=== PATIENT | female | born 1955 | race African-American/Black ===

== ENCOUNTER 2017-07-09 19:16 | Inpatient (IN) | payer MEDICAID ==
[~2017-07-09] VITALS: Ht 162.6 cm; Wt 77.6 kg
[~2017-07-09 19:16] MED LIST: ALBU6.7H INH; DIAZ10TA PO; HYDR-523 PO; PHEN100C4 PO; PHEN60TA PO
[2017-07-09] MEDS ORDERED: ASPIRIN 81MG TABLET PO STA (19:39)
[2017-07-09] MEDS ORDERED: METHYLPREDNISOLONE SOD SUCC 125 MG/2 ML VIAL IV STA (19:39)
[2017-07-09] MEDS ORDERED: ALBUTEROL (0.083%) 2.5MG/3ML NEB HHN STA (19:39)
[2017-07-09] MEDS ORDERED: IPRATROPIUM BROMIDE (0.02%) 0.5MG/2.5ML NEB HHN STA (19:39)
[2017-07-09] MEDS ORDERED: SODIUM CHLORIDE 0.9% 1000ML BAG (SEPSIS BOLUS) IV ONE (19:45)
[2017-07-09] MEDS ORDERED: ALBUTEROL (0.5%) 2.5MG/0.5ML NEB HHN ONE (19:57)
[2017-07-09] MEDS ORDERED: LEVOFLOXACIN 750MG PREMIX 150 ML IV ONE (20:15)
[2017-07-09 20:24] LABS: BASOPHILS % 1.1 % (0.0-2.0); EOSINOPHILS % 3.3 % (0.0-5.0); HEMATOCRIT. 41.8 % (36.0-48.0); HEMOGLOBIN. 13.5 g/dL (12.0-16.0); LYMPHOCYTES % 41.7 % (20.0-50.0); MEAN CORPUSCULAR HEMOGLOBIN 28.6 pg (28.0-32.0); MEAN CORPUSCULAR VOLUME 88.7 fL (81.0-99.0); MEAN PLATELET VOLUME 7.5 fl (7.4-10.4); MONOCYTES % 7.6 % (2.0-8.0); NEUTROPHILS % 46.3 % (40.0-76.0); PLATELET 240 x1000/uL (130-400); RED BLOOD CELL COUNT 4.71 mill/uL (4.2-5.4); RED CELL DISTRIBUTION WIDTH 13.7 % (11.6-14.6)
[2017-07-09 20:34] LABS: PARTIAL THROMBOPLASTIN TIME 27.9 sec (23.4-31.0); PROTHROMBIN TIME 10.2 sec (9.4-11.6)
[2017-07-09 20:35] LABS: CARBON DIOXIDE 29 mEq/L (21-32); CHLORIDE 106 mEq/L (98-107)
[2017-07-09 20:42] LABS: TROPONIN I 0.03 ng/mL (0.00-0.04)
[2017-07-09] MEDS ORDERED: IPRATROPIUM/ALBUTEROL 0.5-3(2.5)MG/3ML NEB INH PRN (21:15)
[2017-07-09] MEDS ORDERED: CLONIDINE 0.1MG TABLET PO PRN (21:15)
[2017-07-09] MEDS ORDERED: ONDANSETRON HCL 4MG/2ML VIAL IV PRN (21:15)
[2017-07-09] MEDS ORDERED: MAGNESIUM/ALUMINUM HYDROXIDE/SIMETHICONE 30ML UDC PO PRN (21:15)
[2017-07-09] MEDS ORDERED: DOCUSATE SODIUM 100MG CAPSULE PO PRN (21:15)
[2017-07-09] MEDS ORDERED: ACETAMINOPHEN 325MG TABLET PO PRN (21:15)
[2017-07-09 22:22] LABS: CHLORIDE 106 mEq/L (98-107)
[2017-07-09 22:29] LABS: CARBON DIOXIDE 28 mEq/L (21-32)
[2017-07-09 22:31] LABS: CREATINE KINASE 100 IU/L (26-192)
[2017-07-09 22:33] LABS: CREATINE KINASE MB FRACTION 1.3 ng/mL (0.5-3.6)
[2017-07-09 23:45] VITALS: BP 162/86
[2017-07-10] MEDS: AZITHROMYCIN 500 MG TABLET PO SCH ×2 (00:23→21:38)
[2017-07-10 00:39] VITALS: BP 162/86
[2017-07-10 04:00] VITALS: BP 148/87
[2017-07-10] MEDS ORDERED: PNEUMOCOCCAL 23-VAL P-SAC VAC 0.5 ML IM ONE (05:00)
[2017-07-10 05:41] LABS: BASOPHILS % 0.3 % (0.0-2.0); HEMATOCRIT. 36.8 % (36.0-48.0); HEMOGLOBIN. 12.1 g/dL (12.0-16.0); LYMPHOCYTES % 10.5 % (20.0-50.0); MEAN CORPUSCULAR VOLUME 88.1 fL (81.0-99.0); MEAN PLATELET VOLUME 8.1 fl (7.4-10.4); MONOCYTES % 1.5 % (2.0-8.0); NEUTROPHILS % 87.7 % (40.0-76.0); PLATELET 213 x1000/uL (130-400); RED BLOOD CELL COUNT 4.18 mill/uL (4.2-5.4); RED CELL DISTRIBUTION WIDTH 13.5 % (11.6-14.6)
[2017-07-10] MEDS: METHYLPREDNISOLONE SOD SUCC 40 MG/ML VIAL IV SCH ×3 (06:32→21:38)
[2017-07-10 07:47] LABS: GLUCOSE URINE 2+ (NEGATIVE); KETONES URINE TRACE (NEGATIVE); LEUKOCYTE ESTERASE URINE NEGATIVE (NEGATIVE); NITRITE URINE NEGATIVE (NEGATIVE); OCCULT BLOOD URINE NEGATIVE (NEGATIVE); PROTEIN URINE NEGATIVE (NEGATIVE); SPECIFIC GRAVITY URINE 1.034 (1.005-1.030)
[2017-07-10 07:49] LABS: CLARITY URINE CLEAR (CLEAR); COLOR URINE YELLOW (YELLOW)
[2017-07-10 08:00] VITALS: BP 161/88
[2017-07-10 08:05] LABS: *AMPHETAMINES SCREEN URINE NEGATIVE (NEGATIVE); *BARBITURATES SCREEN URINE NEGATIVE (NEGATIVE); *BENZODIAZEPINES SCREEN URINE NEGATIVE (NEGATIVE); *COCAINE SCREEN URINE PRESUMTIVE POSITIVE (NEGATIVE); CANNABINOID URINE SCREEN NEGATIVE (NEGATIVE); METHADONE URINE SCREEN NEGATIVE (NEGATIVE); OPIATES URINE SCREEN PRESUMTIVE POSITIVE (NEGATIVE); PHENCYCLIDINE URINE SCREEN PRESUMTIVE POSITIVE (NEGATIVE)
[2017-07-10] MEDS: ENOXAPARIN 40MG/0.4ML SYR SUBCUT SCH (09:11)
[2017-07-10 10:37] LABS: CREATINE KINASE MB FRACTION 1.2 ng/mL (0.5-3.6)
[2017-07-10] MEDS ORDERED: HYDROCODONE/ACETAMINOPHEN 5/325MG TABLET PO PRN (11:15)
[2017-07-10] MEDS ORDERED: IPRATROPIUM/ALBUTEROL 0.5-3(2.5)MG/3ML NEB INH PRN (11:15)
[2017-07-10] MEDS ORDERED: PHENOBARBITAL 60 MG PO SCH (11:30)
[2017-07-10 12:00] VITALS: BP 117/65
[2017-07-10] MEDS: PHENOBARBITAL 60MG TABLET PO SCH (13:55)
[2017-07-10] MEDS: IPRATROPIUM/ALBUTEROL 0.5-3(2.5)MG/3ML NEB HHN SCH ×3 (15:56→21:52)
[2017-07-10 16:02] VITALS: BP 127/63
[2017-07-10] MEDS ORDERED: LORAZEPAM 2MG/ML CPJ IV PRN (16:08)
[2017-07-10 20:00] VITALS: BP 133/69
[2017-07-10] MEDS: BUDESONIDE 0.5MG/2ML NEB HHN SCH (21:54)
[2017-07-11] VITALS: BP 125/64
[2017-07-11] MEDS: IPRATROPIUM/ALBUTEROL 0.5-3(2.5)MG/3ML NEB HHN SCH ×6 (01:18→19:54)
[2017-07-11 04:00] VITALS: BP 130/83
[2017-07-11] MEDS: METHYLPREDNISOLONE SOD SUCC 40 MG/ML VIAL IV SCH ×3 (05:19→21:59)
[2017-07-11 06:35] LABS: BASOPHILS % 0.4 % (0.0-2.0); HEMATOCRIT. 37.5 % (36.0-48.0); LYMPHOCYTES % 7.6 % (20.0-50.0); MEAN CORPUSCULAR VOLUME 87.6 fL (81.0-99.0); MEAN PLATELET VOLUME 8.5 fl (7.4-10.4); MONOCYTES % 2.9 % (2.0-8.0); NEUTROPHILS % 89.1 % (40.0-76.0); PLATELET 236 x1000/uL (130-400); RED BLOOD CELL COUNT 4.29 mill/uL (4.2-5.4); RED CELL DISTRIBUTION WIDTH 13.8 % (11.6-14.6)
[2017-07-11 06:43] LABS: CARBON DIOXIDE 27 mEq/L (21-32); CHLORIDE 107 mEq/L (98-107)
[2017-07-11] MEDS: PHENYTOIN SODIUM EXTENDED 100MG CAPSULE PO SCH (08:27)
[2017-07-11] MEDS: ENOXAPARIN 40MG/0.4ML SYR SUBCUT SCH (08:27)
[2017-07-11] MEDS: PHENOBARBITAL 60MG TABLET PO SCH (08:27)
[2017-07-11 08:30] VITALS: BP 151/74
[2017-07-11] MEDS: BUDESONIDE 0.5MG/2ML NEB HHN SCH ×3 (08:36→20:35)
[2017-07-11] MEDS ORDERED: AZIT500T5 PO (10:13)
[2017-07-11] MEDS ORDERED: PHEN60TA PO (10:13)
[2017-07-11] MEDS ORDERED: ALBU6.7H INH ×3 (10:13→10:20)
[2017-07-11] MEDS ORDERED: METH4TAB17 PO (10:13)
[2017-07-11] MEDS ORDERED: PHEN100C4 PO ×3 (10:13→10:20)
[2017-07-11] MEDS ORDERED: MOME13HF2 IH (10:13)
[2017-07-11 12:00] VITALS: BP 132/88
[2017-07-11 16:00] VITALS: BP 152/74
[2017-07-11 20:00] VITALS: BP 124/55
[2017-07-11] MEDS: AZITHROMYCIN 500 MG TABLET PO SCH (21:59)
[2017-07-12] VITALS: BP 142/90
[2017-07-12 04:00] VITALS: BP 146/79
[2017-07-12] MEDS: IPRATROPIUM/ALBUTEROL 0.5-3(2.5)MG/3ML NEB HHN SCH ×6 (04:00→20:49)
[2017-07-12] MEDS: METHYLPREDNISOLONE SOD SUCC 40 MG/ML VIAL IV SCH ×3 (06:17→22:48)
[2017-07-12 08:00] VITALS: BP 158/89
[2017-07-12] MEDS: PHENOBARBITAL 60MG TABLET PO SCH (08:28)
[2017-07-12] MEDS: PHENYTOIN SODIUM EXTENDED 100MG CAPSULE PO SCH (08:28)
[2017-07-12] MEDS: ENOXAPARIN 40MG/0.4ML SYR SUBCUT SCH (08:28)
[2017-07-12] MEDS ORDERED: POTASSIUM CHLORIDE 20MEQ TABLET SR PO NR (09:30)
[2017-07-12] MEDS: BUDESONIDE 0.5MG/2ML NEB HHN SCH ×2 (09:50→20:48)
[2017-07-12] MEDS: GUAIFENESIN-DM 200MG-20MG/10ML UDC PO PRN ×2 (10:28→22:48)
[2017-07-12 12:00] VITALS: BP 132/73
[2017-07-12 16:00] VITALS: BP 143/74
[2017-07-12 20:00] VITALS: BP 118/73
[2017-07-12] MEDS: AZITHROMYCIN 500 MG TABLET PO SCH (22:48)
[2017-07-12] MEDS: SILVER SULFADIAZINE 1% CREAM 50GM TOP SCH (22:49)
[2017-07-13] VITALS: BP 139/84
[2017-07-13] MEDS: IPRATROPIUM/ALBUTEROL 0.5-3(2.5)MG/3ML NEB HHN SCH ×6 (00:48→20:35)
[2017-07-13 04:00] VITALS: BP 157/79
[2017-07-13] MEDS: METHYLPREDNISOLONE SOD SUCC 40 MG/ML VIAL IV SCH ×2 (06:57→13:52)
[2017-07-13] MEDS: GUAIFENESIN-DM 200MG-20MG/10ML UDC PO PRN ×2 (06:57→13:52)
[2017-07-13 08:00] VITALS: BP 143/85
[2017-07-13] MEDS: ENOXAPARIN 40MG/0.4ML SYR SUBCUT SCH (08:09)
[2017-07-13] MEDS: PHENOBARBITAL 60MG TABLET PO SCH (08:09)
[2017-07-13] MEDS: PHENYTOIN SODIUM EXTENDED 100MG CAPSULE PO SCH (08:09)
[2017-07-13] MEDS: SILVER SULFADIAZINE 1% CREAM 50GM TOP SCH (08:10)
[2017-07-13] MEDS: BUDESONIDE 0.5MG/2ML NEB HHN SCH ×2 (08:11→20:34)
[2017-07-13] MEDS ORDERED: SILVER SULFADIAZINE 1% CREAM 50GM TOP SCH (09:00)
[2017-07-13 12:00] VITALS: BP 112/65
[2017-07-13] MEDS ORDERED: P20 PO (13:03)
[2017-07-13 16:00] VITALS: BP 132/86
[2017-07-13 20:00] VITALS: BP 127/75
[2017-07-13] MEDS: AZITHROMYCIN 500 MG TABLET PO SCH (22:37)
[2017-07-13] MEDS ORDERED: PROMETHAZINE/DEXTROMETHORPHAN 6.25-15MG/5ML BOTTLE 120ML PO PRN (23:30)
[2017-07-14 00:20] VITALS: BP 130/75
[2017-07-14 04:02] VITALS: BP 126/73
[2017-07-14] MEDS: IPRATROPIUM/ALBUTEROL 0.5-3(2.5)MG/3ML NEB HHN SCH ×5 (04:44→22:45)
[2017-07-14 08:00] VITALS: BP 118/67
[2017-07-14] MEDS: BUDESONIDE 0.5MG/2ML NEB HHN SCH ×2 (08:29→22:45)
[2017-07-14] MEDS: ENOXAPARIN 40MG/0.4ML SYR SUBCUT SCH (09:49)
[2017-07-14] MEDS: PHENOBARBITAL 60MG TABLET PO SCH (09:49)
[2017-07-14] MEDS: PHENYTOIN SODIUM EXTENDED 100MG CAPSULE PO SCH (09:49)
[2017-07-14] MEDS: SILVER SULFADIAZINE 1% CREAM 50GM TOP SCH (09:50)
[2017-07-14 12:00] VITALS: BP 114/66
[2017-07-14 16:00] VITALS: BP 121/68
[2017-07-14 20:00] VITALS: BP 124/61
[2017-07-14] MEDS: AZITHROMYCIN 500 MG TABLET PO SCH (20:24)
[2017-07-15] VITALS (7 sets, daily range): BP systolic 98–115; BP diastolic 57–82
[2017-07-15] MEDS: IPRATROPIUM/ALBUTEROL 0.5-3(2.5)MG/3ML NEB HHN SCH ×6 (02:00→20:12)
[2017-07-15] MEDS: BUDESONIDE 0.5MG/2ML NEB HHN SCH ×2 (09:15→20:12)
[2017-07-15] MEDS: SILVER SULFADIAZINE 1% CREAM 50GM TOP SCH (09:38)
[2017-07-15] MEDS: ENOXAPARIN 40MG/0.4ML SYR SUBCUT SCH (09:38)
[2017-07-15] MEDS: PHENYTOIN SODIUM EXTENDED 100MG CAPSULE PO SCH (09:38)
[2017-07-15] MEDS: PHENOBARBITAL 60MG TABLET PO SCH (09:38)
[2017-07-15] MEDS: AZITHROMYCIN 500 MG TABLET PO SCH (20:29)
[2017-07-16] VITALS: BP 96/61
[2017-07-16] MEDS: IPRATROPIUM/ALBUTEROL 0.5-3(2.5)MG/3ML NEB HHN SCH ×3 (00:05→13:52)
[2017-07-16 04:00] VITALS: BP 107/63
[2017-07-16 08:00] VITALS: BP 110/80
[2017-07-16] MEDS: SILVER SULFADIAZINE 1% CREAM 50GM TOP SCH (09:16)
[2017-07-16] MEDS: ENOXAPARIN 40MG/0.4ML SYR SUBCUT SCH (09:16)
[2017-07-16] MEDS: PHENOBARBITAL 60MG TABLET PO SCH (09:16)
[2017-07-16] MEDS: PHENYTOIN SODIUM EXTENDED 100MG CAPSULE PO SCH (09:16)
[2017-07-16 12:00] VITALS: BP 112/75
[2017-07-16] MEDS: BUDESONIDE 0.5MG/2ML NEB HHN SCH (13:52)
[2017-07-16 15:40] VITALS: BP 112/78
== END 2017-07-16 16:40 | disposition home or self-care (01) | DRG 140 ==
LOC: ER 19:22 → 5WST 21:03 → EDBEDREQ 21:08 → ENRESERV 21:13
PROVIDERS: ADMIT Internal Medicine; ATTEND Internal Medicine
DX: J44.1 Chronic obstructive pulmonary disease with (acute) exacerbation (principal); J96.00 Acute respiratory failure, unspecified whether with hypoxia or hypercapnia; I11.9 Hypertensive heart disease without heart failure; F14.10 Cocaine abuse, uncomplicated; F17.210 Nicotine dependence, cigarettes, uncomplicated; E07.81 Sick-euthyroid syndrome; G40.909 Epilepsy, unspecified, not intractable, without status epilepticus; Z96.643 Presence of artificial hip joint, bilateral; Z59.0 Homelessness; Z82.49 Family history of ischemic heart disease and other diseases of the circulatory system; Z83.3 Family history of diabetes mellitus; Z79.899 Other long term (current) drug therapy
CPT/HCPCS: 36415; 71010; 80048; 80053; 80061; 80305; 81001; 82550; 82553; 83605; 83690; 83735; 83880; 84443; 84484; 85025; 85610; 85730; 87040; 87070; 90732; 93005; 93970; 94640; 94660; 94664; 96374; 96375; 99285; J1650; J1956; J2060; J2920; J2930; J7030; J7611; J7620; J7626

== ENCOUNTER 2017-08-16 00:04 | Emergency (ER) | payer MEDICAID ==
[~2017-08-16] VITALS: Ht 162.6 cm; Wt 79.0 kg
[~2017-08-16 00:04] MED LIST changes: +AZIT500T5 PO; -HYDR-523 PO; +METH4TAB17 PO; +MOME13HF2 IH; +P20 PO
[2017-08-16 00:59] LABS: BASOPHILS % 1.6 % (0.0-2.0); EOSINOPHILS % 1.1 % (0.0-5.0); HEMATOCRIT. 39.7 % (36.0-48.0); HEMOGLOBIN. 12.9 g/dL (12.0-16.0); LYMPHOCYTES % 34.5 % (20.0-50.0); MEAN CORPUSCULAR HEMOGLOBIN 29.1 pg (28.0-32.0); MEAN CORPUSCULAR VOLUME 89.6 fL (81.0-99.0); MEAN PLATELET VOLUME 7.4 fl (7.4-10.4); MONOCYTES % 7.9 % (2.0-8.0); NEUTROPHILS % 54.9 % (40.0-76.0); PLATELET 319 x1000/uL (130-400); RED BLOOD CELL COUNT 4.43 mill/uL (4.2-5.4); RED CELL DISTRIBUTION WIDTH 14.6 % (11.6-14.6)
[2017-08-16 01:09] LABS: PROTHROMBIN TIME 10.3 sec (9.4-11.6)
[2017-08-16 01:14] LABS: CARBON DIOXIDE 33 mEq/L (21-32); CHLORIDE 107 mEq/L (98-107); TROPONIN I < 0.02 ng/mL (0.00-0.04)
[2017-08-16 02:09] VITALS: BP 138/78
== END 2017-08-16 03:03 | disposition home or self-care (01) ==
LOC: ER 00:04
DX: R05 Cough (principal); L03.115 Cellulitis of right lower limb; L03.116 Cellulitis of left lower limb; I10 Essential (primary) hypertension; B19.20 Unspecified viral hepatitis C without hepatic coma; J44.9 Chronic obstructive pulmonary disease, unspecified; G40.909 Epilepsy, unspecified, not intractable, without status epilepticus; Z96.641 Presence of right artificial hip joint
CPT/HCPCS: 36415; 71010; 80053; 83880; 84484; 85025; 85610; 93005; 99285; Z7610

== ENCOUNTER 2017-08-16 16:09 | Emergency (ER) | payer MEDICAID ==
[~2017-08-16] VITALS: Ht 157.5 cm; Wt 79.1 kg
[2017-08-16] MEDS ORDERED: IPRATROPIUM/ALBUTEROL 0.5-3(2.5)MG/3ML NEB HHN ONE (22:15)
[2017-08-17 00:28] VITALS: BP 131/68
== END 2017-08-17 00:55 | disposition home or self-care (01) ==
LOC: ER 16:45
DX: J44.1 Chronic obstructive pulmonary disease with (acute) exacerbation (principal); J45.901 Unspecified asthma with (acute) exacerbation; F17.210 Nicotine dependence, cigarettes, uncomplicated; R03.0 Elevated blood-pressure reading, without diagnosis of hypertension; H91.90 Unspecified hearing loss, unspecified ear; Z96.649 Presence of unspecified artificial hip joint
CPT/HCPCS: 71020; 94640; 99284; Z7610; J7620

== ENCOUNTER 2018-07-05 02:09 | Emergency (ER) | payer MEDICAID ==
[~2018-07-05] VITALS: Ht 167.6 cm; Wt 59.1 kg
[2018-07-05] MEDS ORDERED: ACETAMINOPHEN WITH CODEINE 300/30MG TABLET PO ONE (07:00)
[2018-07-05 07:44] VITALS: BP 126/89
== END 2018-07-05 09:00 | disposition home or self-care (01) ==
LOC: ER 02:19
DX: S70.02XA Contusion of left hip, initial encounter (principal); S30.0XXA Contusion of lower back and pelvis, initial encounter; R03.0 Elevated blood-pressure reading, without diagnosis of hypertension; V03.90XA Pedestrian on foot injured in collision with car, pick-up truck or van, unspecified whether traffic or nontraffic accident, initial encounter; Y93.01 Activity, walking, marching and hiking; Y92.480 Sidewalk as the place of occurrence of the external cause; Z96.642 Presence of left artificial hip joint; Z79.899 Other long term (current) drug therapy
CPT/HCPCS: 72100; 73502; 99284